=== PATIENT | male | born 1975 | race African-American/Black ===

== ENCOUNTER 2018-12-05 10:03 | Inpatient (IN) ==
--- NOTE | 2018-12-05 10:28 | PROVIDER DOCUMENTATION ---
HPI-General Adult - General Chief Complaint: Abdominal Pain Stated Complaint: ABD PAIN Time Seen by Provider: 12/05/18 10:24 Source: patient Allergies/Adverse Reactions: Patient Allergies Allergy/AdvReac Type Severity Reaction Status Date / Time No Known Allergies Allergy Verified 12/05/18 10:16 Home Medications: Home Medication List Medication Instructions Recorded Confirmed Last Taken Type NK [No Home Medications] 12/05/18 12/05/18 Unknown History - History of Present Illness -Gen Adult Nature of Presenting Problems: Pt. is 43 yom that presents with c/o LLQ abd pain that began three days ago. He reports his last normal BM was Thursday and he has been trying laxatives but nothing helps. He denies any Hx of diverticulitis and reports no N/V/D. He has no other complaints. Location of Pain/Injury: reports: abdomen. denies: none, head, face, mouth, neck, chest, upper extremity, hand(s), back, pelvis, genitalia, lower extremity, feet, upper body, lower body, generalized, other Pain Radiation: reports: LLQ. denies: no radiation, arm(s), back, buttocks, chest, epigastric, feet, groin, jaw, flank (L), legs (lower), LUQ, neck, periumbilical, flank (R), RLQ, RUQ, shoulder(s), scapula, scrotal, sternal notch, suprapubic, legs (upper), urethral, vaginal, other Quality of Pain: reports: aching. denies: burning, pressure, tightness Severity: reports: moderate. denies: mild, severe Onset/Duration: reports: gradual, 3 days ago Timing: reports: still present. denies: improving, intermittent, getting worse Context/Activities at Onset: reports: none. denies: light activity, moderate activity, vigorous activity, recent emotional stress, recent physical stress, recent trauma history, possible bad food, cold exposure, eating, out of country travel, rest, sleep, sexual activity, other Modifying Factors: improves with: nothing Associated Symptoms: reports: other (LLQ abd pain). denies: denies symptoms, anxiety, arm pain, back/neck pain, chest pain, constipation, cough, diaphoresis, diarrhea, dizziness, EENT symptoms, fatigue, fever/chills, genitourinary problems, headaches, heartburn, joint pain, loss of appetite, malaise, muscle aches, sinus congestion/drainage, nausea, rash, seizure, shortness of breath, sensory/motor loss, pain with inspiration, swelling/mass in abdomen, syncope, v omiting, weakness, trouble walking Similar Symptoms Previously?: Yes Recently seen or treated by another doctor?: No Review of Systems - Adult - REVIEW OF SYSTEMS - ADULT Constitutional: reports: no symptoms reported Eyes: reports: no symptoms reported Ears, Nose, Mouth & Throat: reports: no symptoms reported Cardiovascular: reports: no symptoms reported Respiratory: reports: no symptoms reported Gastrointestinal: reports: see HPI, abdominal pain. denies: diarrhea, nausea, vomiting Genitourinary: reports: no symptoms reported Musculoskeletal: reports: no symptoms reported Integumentary: reports: no symptoms reported Neurological: reports: no symptoms reported Psychiatric: reports: no symptoms reported Past History - Adult - PAST MEDICAL HISTORY-ADULT Review of Records: reports: Old Records Reviewed, Nursing Assessment Review, Medications Reviewed, Social history reviewed & non-contributory. - IMMUNIZATION STATUS Childhood Immunizations: See Nurse Assessment Flu Vaccine: See Nurse Assessment - FAMILY HISTORY Family History: reviewed, not pertinent - SOCIAL HISTORY Smoking: denies Physical Exam-General - PHYSICAL EXAM-ADULT Initial Vital Signs Reviewed: Yes - CONSTITUTIONAL General Appearance: alert, no apparent distress. negative: anxious, obtunded, combative - EYES Eyes: PERRL/EOMI, pink conjunctivae - HEAD, EARS, NOSE, MOUTH & THROAT HENMT: normocephalic/atraumatic, moist mucous membranes - NECK Neck: non-tender, full range of motion, supple, normal inspection - RESPIRATORY Respiratory: lungs clear, normal breath sounds - CARDIOVASCULAR Cardiovascular: normal peripheral pulses, regular rate, rhythm, no edema - GASTROINTESTINAL (ABDOMEN) Abdominal Exam: normal bowel sounds, soft, tenderness (LLQ). negative: distended, guarding, rigid, rebound, hernia, mass - LYMPHATIC Lymphatic: no adenopathy - MUSCULOSKELETAL Back Exam: normal inspection, no CVA tenderness, no vertebral tenderness Extremity: normal range of motion, non-tender, normal gait, normal inspection Peripheral Pulses: radial (R): 2+, radial (L): 2+ - SKIN Integumentary: normal color, normal turgor, warm/dry - NEUROLOGIC Neurologic: grossly normal, no motor/sensory deficits - PSYCHIATRIC Psych/Mental Status: normal mood/affect, normal thought content, normal thought process, oriented x 3. negative: anxious, paranoid, tearful Progress - PLAN OF CARE/RESULTS Progress/Plan/Lab Results: Vital Signs - 8 hr 12/05/18 10:14 Temperature 99.6 F Pulse Rate 94 H Respiratory Rate 18 Blood Pressure 123/81 O2 Sat by Pulse Oximetry 96 Orders Category Date Time Status FLAT/UPRIGHT ABD/1 VIEW CHEST [RAD] Stat Exams 12/05/18 10:17 Ordered AMYLASE [CHEM] Stat Lab 12/05/18 10:17 Ordered CBC WITH DIFF [HEME] Stat Lab 12/05/18 10:17 Ordered COMPREHENSIVE METABOLIC PANEL [CHEM] Stat Lab 12/05/18 10:26 Ordered LIPASE [CHEM] Stat Lab 12/05/18 10:[address] W/POSS RFLX CULT [URINALYSIS] Stat Lab 12/05/18 10:26 Ordered Result Diagrams: 12/05/18 10:28 12/05/18 10:28 - CT/MRI 1 CT Study: Abdomen, Pelvis ([facility] - [address] [place] [address] [place] [address] [place] [address] - [address] [place] [address] Department of Imaging Patient: LUCERO LEWIS Date: 12/05/18#: [id number] : 1975ADM Status: REG [facility]#: [id number] Age/Sex: 43/MRoom/Bed: Loc: P.ED Ordering Physician: Sandra Sarmiento Family Physician: None,PCP Reason for Procedure: abd pain Signed CT ABD/PELVIS W/IV CONT ONLY - 12/05/2018 INDICATION: abd pain COMPARISON: None FINDINGS: The lung bases are clear and the heart size is normal. There is a nodule in the left adrenal gland that measures 2.3 cm. The density measurement in size 35 which is indeterminate. There are a couple of tiny left renal cysts. Otherwise abdominal organs are all normal. There are appendectomy changes. There is intense inflammation around a diverticulum of the sigmoid colon. No free air or drainable fluid collection. Urinary bladder, prostate, and rectum are normal. Bones are intact. IMPRESSION: 1. Acute diverticulitis of the sigmoid colon. No complication. 2. Small left adrenal gland nodule of doubtful significance. This exam was performed using automated exposure control, adjustment of mA or kV according to patient size, and/or use of iterative reconstruction technique Electronically signed by Domo Lewis 12/05/2018 1:16 PM 12/05/18 1316 Interpreting Physician: Domo Lewis MD Dictated Date/Time: 12/05/18 1314 cc: Sandra Sarmiento; None,PCP) CT Results: See note - CONSULTS/PCP/HOSPITALIST Notification #1 *Consult/PCP/Hospitalist*: Dr. Garcia Time Discussed: 13:26 Reason/Comments: Admission Consult Disposition: Will see in ED, Admit Departure - Departure Date of Disposition Decision: 12/05/18 Time of Disposition Decision: 13:22 DIAGNOSIS: Diverticulitis Disposition: ADMITTED INPATIENT 09 Certified Medical Emergency: Emergent Condition: Stable Additional Freetext Instructions: ED Follow Up Instructions: You have been treated by a care provider in the Emergency Department. These instructions are being provided to you so you can have an understanding of how to care for yourself upon discharge. Upon discharge from the Emergency Department, you are responsible for making arrangements for follow-up care by a physician of your choice. Take all prescribed medications as directed. Return to the Emergency Department immediately for any new or worsening symptoms. You may call the Physician Referral phone number at [phone] to obtain a list of Physicians who are taking new patients. Referrals and Follow-Ups: None,PCP [Primary Care Provider] - - Critical Care Note This patient required my direct & personal management of CC.: No Attestation - Physician/ ELLE Attestation Patient care was provided by Advanced Practice Provider:: Yes Advanced Practice Provider:: Sandra Sarmiento Advanced Practice Provider documentation review:: The Mid-level provider documentation, treatment plan and medical decision making was reviewed by the physician who agrees with all treatment and medical decision making by the MLP. The physician spent face to face time with patient:: No Advanced Practice Provider documentation review:: Supervising physician onsite and consulted in the evaluation and care of this patient. The physician did not have a face to face encounter with the patient.
[2018-12-05 10:39] LABS: BILIRUBIN URINE NEGATIVE (NEGATIVE); BLOOD URINE 2+ (NEGATIVE); CLARITY SL. CLOUDY (CLEAR); COLOR YELLOW; GLUCOSE URINE NEGATIVE (NEGATIVE); KETONE URINE NEGATIVE (NEGATIVE); LEUKOCYTES URINE NEGATIVE (NEGATIVE); NITRITE URINE NEGATIVE (NEGATIVE); PROTEIN URINE TRACE mg/dL (NEGATIVE); SP GRAVITY URINE 1.025; UROBILINOGEN URINE NORMAL
[2018-12-05 10:39] LABS: BASO# 0.01 X1000 (0.0-0.2); BASO% 0.1 % (0.0-0.8); EOS# 0.18 X1000 (0.0-0.7); EOS% 1.1 % (0.0-10.0); HEMATOCRIT 41.5 % (42.0-52.0); HEMOGLOBIN 13.3 g/dL (14.0-18.0); IMM GRAN# 0.04 X1000 (0.0-0.04); IMM GRAN% 0.3 % (0.0-0.5); LYMPH% 8.8 % (20.5-51.1); MCH 24.1 PG (27-31); MCV 75.3 FL (81-99); MONO# 1.59 X1000 (0.11-0.59); MONO% 10.1 % (1.7-9.3); MPV 11.8 FL (7.4-10.4); NEUT% 79.6 % (42.2-75.2); PLT 194 X1000 (130-400); RBC 5.51 XMIL (4.7-6.1); RDW 14.8 % (11.5-14.5); WBC 15.82 X1000 (4.8-10.8)
[2018-12-05 10:41] LABS: URINE BACTERIA 1+ /HFP; URINE CAST NONE SEEN /LPF; URINE CRYSTAL NONE SEEN /HPF; URINE EPITHELIAL CELLS <10 /HPF (<10); URINE RBC 20-40 /HPF (<10); URINE SOURCE CLEAN CATCH; URINE WBC <10 /HPF (<10); URINE YEAST NONE SEEN /HPF
[2018-12-05 11:09] LABS: AGAP 14; ALBUMIN 4.3 g/dL (3.5-5.0); ALKALINE PHOSPHATASE 98 U/L (32-122); BUN 11 mg/dL (8-22); CALCIUM 9.1 mg/dL (8.8-10.2); CHLORIDE 101 mmol/L (98-107); COSMO 283; ESTIMATED GFR > 60; GLUCOSE 106 mg/dL (70-104); GOT 11 U/L (10-34); GPT 15 U/L (10-44); LIPASE 21 U/L (13-60); POTASSIUM 3.8 mmol/L (3.5-5.1); SODIUM 142 mmol/L (136-145); TCO2 27 mmol/L (25-35); TOTAL PROTEIN 7.5 g/dL (6.3-8.3)
--- NOTE | 2018-12-05 13:19 | Diag Imaging Result Doc PS360 ---
CT ABD/PELVIS W/IV CONT ONLY - 12/05/2018 INDICATION: abd pain COMPARISON: None FINDINGS: The lung bases are clear and the heart size is normal. There is a nodule in the left adrenal gland that measures 2.3 cm. The density measurement in size 35 which is indeterminate. There are a couple of tiny left renal cysts. Otherwise abdominal organs are all normal. There are appendectomy changes. There is intense inflammation around a diverticulum of the sigmoid colon. No free air or drainable fluid collection. Urinary bladder, prostate, and rectum are normal. Bones are intact. IMPRESSION: 1. Acute diverticulitis of the sigmoid colon. No complication. 2. Small left adrenal gland nodule of doubtful significance. This exam was performed using automated exposure control, adjustment of mA or kV according to patient size, and/or use of iterative reconstruction technique Electronically signed by Domo Lewis 12/05/2018 1:16 PM
[2018-12-05] MEDS ORDERED: FLAGYL 500 MG/NS 500 MG/100 ML IVPB IV ONE (13:23)
[2018-12-05] MEDS ORDERED: MORPHINE IV PRN (14:53)
[2018-12-05] MEDS: NS 1,000 ML IV SCH (15:18)
[2018-12-05] MEDS: ZOFRAN IV PRN (15:19)
[2018-12-05] MEDS: ROCEPHIN 1 GM in NS 50 ML IV SCH (15:23)
[2018-12-05 17:01] LABS: INR 0.93; PROTIME 12.9 Seconds (11.0-16.0)
[2018-12-05] MEDS: MORPHINE IV PRN (18:17)
--- NOTE | 2018-12-05 18:20 | HISTORY AND PHYSICAL ---
CHIEF COMPLAINT: Abdominal pain of 2 days duration. HISTORY OF PRESENT ILLNESS: Mr. Tom Wallis is a 43-year-old gentleman who came into the emergency room with 2-day history of worsening lower abdominal pain for past 2 days. He denies having any vomiting but does have some nausea. He denies having any other complaints except for having low-grade fever. PAST MEDICAL HISTORY: Eczema. SOCIAL HISTORY: The patient does not smoke any tobacco products nor does he drink any alcohol. FAMILY HISTORY: Noncontributory. ALLERGIES: No known drug allergies. 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 REVIEW OF SYSTEMS: A full 14-point review of systems was obtained that was pretty much the same as already has been explained in the HPI. PHYSICAL EXAMINATION: VITAL SIGNS: Temperature 99.2 degrees, pulse 91 per minute, respiratory rate 18 per minute, blood pressure 138/79, pulse oximetry 96% on room air. GENERAL: Patient is alert and oriented x3. He does not appear to be in any acute distress. HEENT: Within normal limits. NECK: Supple without any thyromegaly. LYMPHATICS: No lymphadenopathy noted in the neck region. CHEST: Chest wall is nontender. CARDIOVASCULAR: First and second heart sounds are audible without any murmurs or gallops. RESPIRATORY: No respiratory distress noted. Bilateral lung air entry is good without any rales or rhonchi. GASTROINTESTINAL: Abdomen is soft and nondistended. It is significantly tender in the left lower quadrant and suprapubic area. There is some guarding but no rigidity. There is also no rebound tenderness. Normal bowel sounds are present. NEUROLOGIC: No focal deficits are present. GENITOURINARY: Deferred. INTEGUMENTARY: Skin is warm, dry, and without any rash. MUSCULOSKELETAL: No deformities are present. DIAGNOSTIC DATA: CBC shows WBC count of 15.82 with 79.6% neutrophils. Rest of the CBC is nondiagnostic. PT and PTT are within normal limits and comprehensive metabolic panel was also nondiagnostic. Cardiac enzymes were found to be negative and amylase and lipase along with plasma lactate levels were also found to be negative. Urinalysis showed 20 to 40 RBCs per high-power field but no WBCs. CT scan of the abdomen and pelvis was obtained that was positive for acute diverticulitis of the sigmoid colon without any perforation or any other complications. Small left adrenal gland nodule of doubtful significance was also noted. IMPRESSION: Abdominal pain with leukocytosis secondary to acute diverticulitis. PLAN: The patient will be admitted to the medical-surgical floor and will be initiated on IV ceftriaxone along with IV metronidazole. He will also get IV fluids and get pain relief with morphine sulfate on as-needed basis along with getting Zofran as needed IV for nausea and vomiting relief. We will provide him supportive care and would probably be able to discharge home within the next 2 to 3 days. cc: Alen Garcia MD
--- NOTE | 2018-12-05 19:27 | Diag Imaging Result Doc PS360 ---
CHEST-1 VIEW - 12/05/2018 INDICATION: sepsis COMPARISON: None FINDINGS: The lungs are normally expanded and clear. Heart size and mediastinal contours are normal. No pneumothorax or pleural effusion. IMPRESSION: Negative exam. Electronically signed by Domo Lewis 12/05/2018 7:25 PM
[2018-12-05] MEDS: FLAGYL 500 MG/NS 500 MG/100 ML IVPB IV SCH (20:08)
[2018-12-06] MEDS: FLAGYL 500 MG/NS 500 MG/100 ML IVPB IV SCH ×4 (01:16→19:54)
[2018-12-06] MEDS: MORPHINE IV PRN ×5 (02:36→19:54)
[2018-12-06] MEDS: NS 1,000 ML IV SCH ×3 (02:36→18:18)
[2018-12-06 06:28] LABS: BASO# 0.01 X1000 (0.0-0.2); BASO% 0.1 % (0.0-0.8); EOS# 0.16 X1000 (0.0-0.7); HEMATOCRIT 38.7 % (42.0-52.0); HEMOGLOBIN 12.3 g/dL (14.0-18.0); IMM GRAN# 0.05 X1000 (0.0-0.04); IMM GRAN% 0.3 % (0.0-0.5); LYMPH# 1.51 X1000 (1.2-3.4); LYMPH% 9.4 % (20.5-51.1); MCHC 31.8 g/dL (33-37); MCV 75.6 FL (81-99); MONO# 1.49 X1000 (0.11-0.59); MONO% 9.3 % (1.7-9.3); MPV 11.2 FL (7.4-10.4); NEUT# 12.84 X1000 (1.4-6.5); NEUT% 79.9 % (42.2-75.2); PLT 183 X1000 (130-400); RBC 5.12 XMIL (4.7-6.1); RDW 14.8 % (11.5-14.5); WBC 16.06 X1000 (4.8-10.8)
[2018-12-06 07:08] LABS: AGAP 11; ALBUMIN 3.9 g/dL (3.5-5.0); ALKALINE PHOSPHATASE 93 U/L (32-122); BUN 6 mg/dL (8-22); CALCIUM 9.1 mg/dL (8.8-10.2); CHLORIDE 102 mmol/L (98-107); COSMO 279; CREATININE 0.9 mg/dL (0.7-1.2); ESTIMATED GFR > 60; GLUCOSE 134 mg/dL (70-104); GOT 9 U/L (10-34); GPT 12 U/L (10-44); POTASSIUM 3.6 mmol/L (3.5-5.1); SODIUM 140 mmol/L (136-145); TCO2 28 mmol/L (25-35); TOTAL PROTEIN 7.4 g/dL (6.3-8.3)
[2018-12-06] MEDS: TYLENOL PO PRN ×2 (09:41→15:49)
[2018-12-06] MEDS: ZOFRAN IV PRN (12:37)
[2018-12-06] MEDS: ROCEPHIN 1 GM in NS 50 ML IV SCH (15:49)
--- NOTE | 2018-12-06 21:49 | PROGRESS NOTE ---
DATE: 12/06/2018 SUBJECTIVE: The patient notes that he still has significant abdominal pain. Notes that he has only drank a few sips here and there, and his abdominal pain continues to be problematic. PHYSICAL EXAMINATION: Vital Signs: Temperature 98.7, pulse 87, respiratory rate 18, BP 123/81. General: Patient is awake, currently in no respiratory distress. He is obviously ill appearing with any movement. He grimaces with pain. HEENT: Normocephalic. Neck: Supple. Cardiovascular: Regular rate. No murmurs. Chest: Clear and nonlabored. Abdomen: Soft. Positive bowel sounds, diffusely tender. Extremities: Moves all extremities. ASSESSMENT: 1. Leukocytosis. 2. Diverticulitis. PLAN: We will continue patient in the hospital with intravenous fluids. Continue Flagyl and Rocephin and will follow. Expect to be in the hospital for a few days. cc: Arpit Rodriguez MD
[2018-12-07] MEDS: ZOFRAN IV PRN ×3 (00:13→21:50)
[2018-12-07] MEDS: MORPHINE IV PRN ×4 (00:13→21:45)
[2018-12-07] MEDS: NS 1,000 ML IV SCH ×3 (01:09→21:45)
[2018-12-07] MEDS: FLAGYL 500 MG/NS 500 MG/100 ML IVPB IV SCH ×2 (01:09→08:40)
[2018-12-07] MEDS: ZOSYN 3.375 GM in NS 50 ML IV SCH ×3 (12:53→23:09)
[2018-12-07] MEDS: TYLENOL PO PRN (12:53)
[2018-12-07] MEDS ORDERED: MILK OF MAGNESIA PO PRN (17:47)
[2018-12-07] MEDS: MIRALAX PO SCH (18:58)
--- NOTE | 2018-12-07 19:34 | PROGRESS NOTE ---
DATE: 12/07/2018 SUBJECTIVE: The patient is still complaining of pain. He is not much better. He is a bit upset about that. He has not been communicated with per his discussion. He is upset and I think his significant other is also upset. OBJECTIVE: Blood pressure is 143/92, heart rate 86, respiratory rate 16, temperature 98.1 degrees, 98% on room air.Cardiovascular: Regular rate and rhythm. Pulmonary: Bilateral breath sounds. Clear to auscultation. Gastrointestinal: Soft, nontender, nondistended. Bowel sounds are positive. LABORATORY DATA: We did not get any new data today. IMPRESSION: Diverticulitis. White count was still high. I switched him to Zosyn today. I think if he is not much better in the next 24 hours, we will have to do reimaging, make sure there is no abscess or perforation. He is passing flatus, but he still has not had a bowel movement. According to his , he has not had a bowel movement in seven days. He is tolerating clears. He has pain after urination, but I am not entirely sure that may not be related to his primary issue. His UA did show just some mild hematuria, nothing major. PROBLEM LIST: Diverticulitis, acute sigmoid. We will continue treatment which includes IV antibiotics. Initiate bowel regimen. If he is not much better in the next tomorrow, I am going to re-image with CT. We had discussed at length that I did not want to collier into that due to radiation concern in a 43-year-old, but they seem to understand the risk there, but we may have to do it if he is not improved and get a surgical consult. I think they understood what was going on. We explained the pathology of diverticulitis, diverticulosis, and diverticular bleed, and that he would need to be on chronic bowel treatments long-term. cc: Robi Christine MD
[2018-12-07] MEDS: DULCOLAX PR SCH (21:05)
[2018-12-08] MEDS: MORPHINE IV PRN ×4 (01:19→20:56)
[2018-12-08] MEDS: ZOFRAN IV PRN ×4 (01:24→21:06)
[2018-12-08] MEDS: ZOSYN 3.375 GM in NS 50 ML IV SCH ×4 (05:06→23:26)
[2018-12-08 07:20] LABS: BASO# 0.03 X1000 (0.0-0.2); BASO% 0.2 % (0.0-0.8); EOS# 0.14 X1000 (0.0-0.7); HEMATOCRIT 39.4 % (42.0-52.0); HEMOGLOBIN 12.5 g/dL (14.0-18.0); IMM GRAN# 0.04 X1000 (0.0-0.04); IMM GRAN% 0.3 % (0.0-0.5); LYMPH# 1.17 X1000 (1.2-3.4); LYMPH% 8.5 % (20.5-51.1); MCH 23.7 PG (27-31); MCHC 31.7 g/dL (33-37); MCV 74.8 FL (81-99); MONO# 1.75 X1000 (0.11-0.59); MONO% 12.6 % (1.7-9.3); MPV 11.4 FL (7.4-10.4); NEUT# 10.71 X1000 (1.4-6.5); NEUT% 77.4 % (42.2-75.2); PLT 244 X1000 (130-400); RBC 5.27 XMIL (4.7-6.1); RDW 14.5 % (11.5-14.5); WBC 13.84 X1000 (4.8-10.8)
[2018-12-08 07:54] LABS: AGAP 11; BUN 6 mg/dL (8-22); CALCIUM 9.1 mg/dL (8.8-10.2); CHLORIDE 102 mmol/L (98-107); COSMO 274; CREATININE 0.9 mg/dL (0.7-1.2); ESTIMATED GFR > 60; GLUCOSE 103 mg/dL (70-104); POTASSIUM 3.7 mmol/L (3.5-5.1); SODIUM 138 mmol/L (136-145); TCO2 25 mmol/L (25-35)
[2018-12-08] MEDS: MIRALAX PO SCH ×2 (09:04→20:51)
[2018-12-08] MEDS: DULCOLAX PR SCH ×2 (09:04→20:50)
[2018-12-08] MEDS: NS 1,000 ML IV SCH ×2 (09:05→21:06)
[2018-12-08] MEDS ORDERED: FLEET ENEMA PR PRN (11:38)
[2018-12-08 22:56] LABS: BILIRUBIN URINE NEGATIVE (NEGATIVE); BLOOD URINE 3+ (NEGATIVE); CLARITY CLEAR (CLEAR); COLOR YELLOW; GLUCOSE URINE NEGATIVE (NEGATIVE); KETONE URINE NEGATIVE (NEGATIVE); LEUKOCYTES URINE TRACE (NEGATIVE); NITRITE URINE NEGATIVE (NEGATIVE); PROTEIN URINE NEGATIVE (NEGATIVE); SP GRAVITY URINE 1.005; UROBILINOGEN URINE NORMAL
[2018-12-08 22:57] LABS: URINE SOURCE CLEAN CATCH
[2018-12-08 22:58] LABS: URINE BACTERIA NEGATIVE /HFP; URINE EPITHELIAL CELLS <10 /HPF (<10); URINE WBC <10 /HPF (<10)
[2018-12-09] MEDS: ZOSYN 3.375 GM in NS 50 ML IV SCH ×2 (05:58→12:24)
[2018-12-09] MEDS: NS 1,000 ML IV SCH ×2 (05:59→19:19)
[2018-12-09 07:06] LABS: BASO# 0.06 X1000 (0.0-0.2); BASO% 0.4 % (0.0-0.8); EOS# 0.15 X1000 (0.0-0.7); EOS% 1.1 % (0.0-10.0); HEMATOCRIT 39.9 % (42.0-52.0); HEMOGLOBIN 12.4 g/dL (14.0-18.0); IMM GRAN# 0.08 X1000 (0.0-0.04); IMM GRAN% 0.6 % (0.0-0.5); LYMPH# 1.31 X1000 (1.2-3.4); LYMPH% 9.3 % (20.5-51.1); MCH 23.1 PG (27-31); MCHC 31.1 g/dL (33-37); MCV 74.4 FL (81-99); MONO# 1.72 X1000 (0.11-0.59); MONO% 12.2 % (1.7-9.3); MPV 10.8 FL (7.4-10.4); NEUT# 10.77 X1000 (1.4-6.5); NEUT% 76.4 % (42.2-75.2); PLT 269 X1000 (130-400); RBC 5.36 XMIL (4.7-6.1); RDW 14.4 % (11.5-14.5); WBC 14.09 X1000 (4.8-10.8)
[2018-12-09 07:17] LABS: AGAP 10; BUN 5 mg/dL (8-22); CALCIUM 9.1 mg/dL (8.8-10.2); CHLORIDE 102 mmol/L (98-107); COSMO 275; CREATININE 0.9 mg/dL (0.7-1.2); ESTIMATED GFR > 60; GLUCOSE 105 mg/dL (70-104); POTASSIUM 3.7 mmol/L (3.5-5.1); SODIUM 139 mmol/L (136-145); TCO2 28 mmol/L (25-35)
[2018-12-09 07:57] LABS: ANISOCYTOSIS 1+; LYMPHS 9 % (21-51); MICROCYTOSIS 1+; MONO 12 % (1-9); SEGS 77 % (42-75)
[2018-12-09] MEDS: MIRALAX PO SCH (08:54)
[2018-12-09] MEDS: DULCOLAX PR SCH (08:56)
[2018-12-09] MEDS ORDERED: LACTULOSE PO SCH (10:45)
[2018-12-09] MEDS: MORPHINE IV PRN (10:49)
[2018-12-09] MEDS: ZOFRAN IV PRN ×2 (10:50→15:18)
--- NOTE | 2018-12-09 14:11 | Diag Imaging Result Doc PS360 ---
EXAM: CT ABDOMEN/PELVIS W/WO CONTRAS HISTORY: diverticulitis TECHNIQUE: CT abdomen and pelvis with and without intravenous contrast COMPARISON: 12/05/2018 FINDINGS: Noncontrasted images: There are several tiny left renal stones. No hydronephrosis. Normal aorta. No bowel obstruction. Post contrasted images: There is mild fatty infiltration of the liver. No calcified gallstones or adjacent patient. Normal spleen, pancreas, and right adrenal gland. Stable left adrenal nodule. Small renal cysts. The appendix has been removed. Mildly prominent para-aortic pericaval nodes. There is thickening to the wall of the sigmoid colon. There is adjacent inflammation and several extraluminal air bubbles. No well-defined fluid collection. The urinary bladder is moderately distended and normal. Normal prostate. IMPRESSION: Worsening sigmoid diverticulitis. This exam was performed using automated exposure control, adjustment of mA or kV according to patient size, and/or use of iterative reconstruction technique. Electronically signed by Andre Ramírez 12/09/2018 2:09 PM
[2018-12-09] MEDS: MERREM 1 GM in NS 50 ML IV SCH ×2 (15:14→22:50)
--- NOTE | 2018-12-09 20:10 | GENERAL SURGERY CONSULTATION ---
DATE: 12/09/2018 REASON FOR CONSULTATION: Diverticulitis. HISTORY OF PRESENT ILLNESS: A 43-year-old male who presented to the emergency room on 12/05/2018 with a 2-day history of left lower abdominal pain which was worsened with movement or direct pressure, and he had not had a bowel movement in several days. He was found to have diverticulitis on CT scan. He was admitted, made NPO, and placed on Rocephin and Flagyl. Through the week he reports to me that his pain is present, but not as bad as on admission. He says it mainly hurts when he gets from a lying to sitting position or when he is sitting down to use the bathroom or someone is pressing on it. He is able to walk without pain. He denies nausea, vomiting, fever, chills or other systemic complaints. PAST MEDICAL HISTORY: None. PAST SURGICAL HISTORY: Appendectomy. HOME MEDICATIONS: None. ALLERGIES: No known drug allergies. SOCIAL HISTORY: He drinks alcohol occasionally. No tobacco or illicit drug use. 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 FAMILY HISTORY: reviewed and non-contributory REVIEW OF SYSTEMS: Ten systems reviewed and negative except as noted above. PHYSICAL EXAMINATION: Temperature 98.6 degrees, pulse 77, respirations 18, blood pressure 136/86, O2 saturation 98%.General: Well-developed, well-nourished male in no distress who looks his stated age. HEENT: Normocephalic, atraumatic. Extraocular muscles intact. Pupils equal, round, reactive to light. Sclerae anicteric. Moist mucous membranes. Hearing grossly normal. No oral lesions. Neck supple. No thyromegaly. CV: Regular rate and rhythm. Respiratory: Clear bilateral breath sounds. No increased work of breathing. Gastrointestinal: Soft, nondistended. No organomegaly or mass. He is focally tender in the left lower quadrant. No guarding. He does have some mild rebound. Extremities: No clubbing, cyanosis or edema. Skin warm and dry. No rash. Musculoskeletal: Moves all extremities equally and well. LABORATORY DATA: White blood cell count 14, hemoglobin 12, hematocrit 39.9, platelet count 269,000. Electrolytes reviewed and unremarkable. DIAGNOSTIC DATA: His admission and followup abdominal and pelvis CT scans were reviewed by me. He does have a thickened inflamed sigmoid colon with a few extraluminal air droplets and stranding of the mesenteric fat around it. There is oral contrast passing through the sigmoid colon into the rectum, but without any leakage into the extraluminal tissues. There is no free intra- abdominal air or pelvic free fluid. These changes appear relatively unchanged in my opinion. ASSESSMENT AND PLAN: A 43-year-old male with contained perforation of the sigmoid colon, likely due to diverticulitis. Given his somewhat improved symptoms, stable vital signs, nontoxic appearance, etc., I favor a few more days of conservative management. He has recently been switched to Merrem, which is a good choice. We will monitor him through the next few days. If he shows improvement with lessened pain and tenderness, resolution of his leukocytosis, etc., then I would favor discharge early next week on oral antibiotics and followup in my office. If he fails to improve or worsens, then he will of course need resection plus or minus a colostomy. I think we will probably be able to prep him and avoid a colostomy. Thank you for the consultation. cc: Juno Bazan MD [facility]
[2018-12-10] MEDS: TYLENOL PO PRN ×2 (04:00→17:08)
[2018-12-10] MEDS: NS 1,000 ML IV SCH (06:14)
[2018-12-10] MEDS: MERREM 1 GM in NS 50 ML IV SCH ×3 (06:14→23:59)
[2018-12-10] MEDS: ZOFRAN IV PRN (06:18)
[2018-12-10 06:42] LABS: BASO# 0.09 X1000 (0.0-0.2); BASO% 0.8 % (0.0-0.8); EOS# 0.14 X1000 (0.0-0.7); EOS% 1.2 % (0.0-10.0); HEMATOCRIT 37.5 % (42.0-52.0); IMM GRAN# 0.11 X1000 (0.0-0.04); IMM GRAN% 0.9 % (0.0-0.5); LYMPH# 1.33 X1000 (1.2-3.4); LYMPH% 11.4 % (20.5-51.1); MCH 23.8 PG (27-31); MCV 74.3 FL (81-99); MONO% 13.7 % (1.7-9.3); MPV 10.9 FL (7.4-10.4); NEUT# 8.39 X1000 (1.4-6.5); PLT 274 X1000 (130-400); RBC 5.05 XMIL (4.7-6.1); RDW 14.3 % (11.5-14.5); WBC 11.66 X1000 (4.8-10.8)
[2018-12-10 06:45] LABS: CHLORIDE 102 mmol/L (98-107); POTASSIUM 3.5 mmol/L (3.5-5.1); SODIUM 140 mmol/L (136-145)
[2018-12-10 06:46] LABS: AGAP 11; BUN 4 mg/dL (8-22); CALCIUM 8.9 mg/dL (8.8-10.2); COSMO 277; CREATININE 0.9 mg/dL (0.7-1.2); ESTIMATED GFR > 60; GLUCOSE 108 mg/dL (70-104); TCO2 27 mmol/L (25-35)
[2018-12-10 08:26] LABS: LYMPHS 12 % (21-51); MONO 9 % (1-9); SEGS 79 % (42-75)
[2018-12-10] MEDS ORDERED: TUCKS PADS TOP PRN (12:02)
[2018-12-10] MEDS ORDERED: PRILOSEC PO ONE ×2 (14:22→19:45)
[2018-12-11 06:35] LABS: AGAP 11; BASO# 0.02 X1000 (0.0-0.2); BASO% 0.2 % (0.0-0.8); BUN 5 mg/dL (8-22); CHLORIDE 99 mmol/L (98-107); COSMO 271; CREATININE 0.9 mg/dL (0.7-1.2); EOS# 0.12 X1000 (0.0-0.7); EOS% 1.3 % (0.0-10.0); ESTIMATED GFR > 60; GLUCOSE 172 mg/dL (70-104); HEMATOCRIT 38.7 % (42.0-52.0); HEMOGLOBIN 12.1 g/dL (14.0-18.0); IMM GRAN# 0.13 X1000 (0.0-0.04); IMM GRAN% 1.4 % (0.0-0.5); LYMPH# 0.85 X1000 (1.2-3.4); LYMPH% 9.4 % (20.5-51.1); MCH 23.2 PG (27-31); MCHC 31.3 g/dL (33-37); MCV 74.3 FL (81-99); MONO# 1.29 X1000 (0.11-0.59); MONO% 14.2 % (1.7-9.3); MPV 10.6 FL (7.4-10.4); NEUT# 6.68 X1000 (1.4-6.5); NEUT% 73.5 % (42.2-75.2); PLT 294 X1000 (130-400); POTASSIUM 3.2 mmol/L (3.5-5.1); RBC 5.21 XMIL (4.7-6.1); RDW 14.3 % (11.5-14.5); SODIUM 135 mmol/L (136-145); TCO2 26 mmol/L (25-35); WBC 9.09 X1000 (4.8-10.8)
[2018-12-11] MEDS: PRILOSEC PO SCH (06:39)
[2018-12-11] MEDS: TYLENOL PO PRN (06:39)
[2018-12-11] MEDS: MERREM 1 GM in NS 50 ML IV SCH ×3 (06:40→22:59)
[2018-12-11 07:17] LABS: BASO 1 % (0-1); LYMPHS 12 % (21-51); MONO 11 % (1-9); SEGS 76 % (42-75)
[2018-12-11 07:18] LABS: MICROCYTOSIS 2+
[2018-12-11] MEDS ORDERED: KLOR-CON PO ONE (09:10)
--- NOTE | 2018-12-11 10:02 | PROGRESS NOTE ---
DATE: 12/11/2018 SUBJECTIVE: The patient feels better this morning and denies having any acute complaints. OBJECTIVE: Vital Signs: Temperature 98.4 degrees, pulse 71 per minute, respiratory rate 14 per minute, blood pressure 124/88, pulse oximetry 98% on room air. General: Patient is alert and oriented x3. He does not appear to be in any acute distress. Cardiovascular System: First and second heart sounds are audible without any murmurs or gallops. Respiratory System: Bilateral lung air entry is good without any rales or rhonchi. Gastrointestinal system: Abdomen is soft and slightly tender on deep palpation in left lower quadrant. No rebound tenderness or guarding are present. Normal bowel sounds are present. LABORATORY DATA: CBC shows WBC count of 9.09, hemoglobin 12.1, hematocrit 38.7, and platelet count 294,000. In comparison, his WBC count was 11.66 yesterday. Basic metabolic panel showed potassium level of 3.2. Glucose levels were found to be 172. Rest of the BMP is nondiagnostic. IMPRESSION: Sigmoid diverticulitis. PLAN: The patient has been switched to meropenem which we will continue. He already had a surgical evaluation done and they have recommended to continue medical care at this time without any surgical intervention. He does appear to be getting better clinically and we will monitor that progress. cc: Alen Garcia MD
[2018-12-12 06:17] LABS: BASO# 0.03 X1000 (0.0-0.2); BASO% 0.3 % (0.0-0.8); EOS# 0.15 X1000 (0.0-0.7); EOS% 1.5 % (0.0-10.0); HEMATOCRIT 41.1 % (42.0-52.0); HEMOGLOBIN 12.9 g/dL (14.0-18.0); IMM GRAN# 0.16 X1000 (0.0-0.04); IMM GRAN% 1.6 % (0.0-0.5); LYMPH# 1.21 X1000 (1.2-3.4); LYMPH% 12.3 % (20.5-51.1); MCH 23.2 PG (27-31); MCHC 31.4 g/dL (33-37); MCV 73.9 FL (81-99); MONO# 1.53 X1000 (0.11-0.59); MONO% 15.6 % (1.7-9.3); MPV 10.5 FL (7.4-10.4); NEUT# 6.73 X1000 (1.4-6.5); NEUT% 68.7 % (42.2-75.2); PLT 332 X1000 (130-400); RBC 5.56 XMIL (4.7-6.1); RDW 14.5 % (11.5-14.5); WBC 9.81 X1000 (4.8-10.8)
[2018-12-12] MEDS: PRILOSEC PO SCH (06:30)
[2018-12-12] MEDS: MERREM 1 GM in NS 50 ML IV SCH ×3 (06:35→21:49)
[2018-12-12 06:40] LABS: AGAP 11; ALBUMIN 3.6 g/dL (3.5-5.0); ALKALINE PHOSPHATASE 77 U/L (32-122); BUN 6 mg/dL (8-22); CALCIUM 9.3 mg/dL (8.8-10.2); CHLORIDE 97 mmol/L (98-107); COSMO 271; CREATININE 0.9 mg/dL (0.7-1.2); EOS 1 % (1-10); ESTIMATED GFR > 60; GLUCOSE 96 mg/dL (70-104); GOT 15 U/L (10-34); GPT 16 U/L (10-44); LYMPHS 12 % (21-51); MONO 14 % (1-9); POTASSIUM 3.4 mmol/L (3.5-5.1); SEGS 72 % (42-75); SODIUM 137 mmol/L (136-145); TCO2 29 mmol/L (25-35); TOTAL PROTEIN 7.6 g/dL (6.3-8.3)
[2018-12-12 06:41] LABS: HYPOCHROM OCCASIONAL; LARGE PLATELETS OCCASIONAL; OVALOCYTES OCCASIONAL; POIKILOCYTOSIS OCCASIONAL
[2018-12-12] MEDS ORDERED: KLOR-CON PO ONE (07:36)
--- NOTE | 2018-12-12 14:04 | PROGRESS NOTE ---
DATE: 12/12/2018 SUBJECTIVE: Patient denies having any acute complaints this morning and feels better. OBJECTIVE: Vital Signs: Temperature 97.9 degrees, pulse 71 per minute, respiratory rate 18 per minute, blood pressure 135/89, pulse oximetry 100% on room air. General: Patient is alert and oriented x3. He does not appear to be in any acute distress. Cardiovascular System: First and second heart sounds are audible without murmurs or gallops. Respiratory System: Bilateral lung air entry is good without rales or rhonchi. Gastrointestinal System: Abdomen is soft and slightly tender on deep palpation in left lower quadrant. No guarding or rigidity are present. There is no rebound tenderness either. Normal bowel sounds are present. Musculoskeletal System: No deformities are present. Diagnostic Data: CBC shows WBC count of 9.81, hemoglobin 12.9, hematocrit 41.1, and platelet count of 332,000. Comprehensive metabolic panel showed potassium level of 3.4. Rest of the comprehensive metabolic panel is nondiagnostic. IMPRESSION: 1. Abdominal pain secondary to acute diverticulitis. 2. Hypokalemia. PLAN: We will continue with meropenem intravenously since he has responded well to that antibiotic. We are going to continue with IV fluids and advance the diet to a GI soft since he is getting better. I am going to give him potassium chloride 40 mEq a single dose for his hypokalemia. We will continue to provide him current care as his overall condition is getting better. cc: Alen Garcia MD
--- NOTE | 2018-12-12 19:29 | GENERAL SURGERY PROGRESS NOTE ---
DATE: 12/12/2018 SUBJECTIVE: The patient feels better today, describes less pain, no nausea or vomiting. He is passing gas and has had several stools. He is able to walk around and sit up now with less discomfort. OBJECTIVE: He is afebrile. Vital signs are stable.General: He is awake, alert, oriented x3. No acute distress. CV: Regular rate and rhythm. Respiratory: Bilateral breath sounds. No increased work of breathing. GI: Soft, nondistended. He is tender in the left lower quadrant but without rebound or guarding. LABORATORY: White blood cell count 11.6, hemoglobin 12, hematocrit 37. Electrolytes reviewed and unremarkable. ASSESSMENT/PLAN: 43-year-old male with contained perforated diverticulitis. He is clinically improving. We will continue conservative management for now with antibiotics. If he continues to improve through the weekend then I would anticipate discharge next week with oral antibiotics at home and follow up my office. If he worsens or fails to improve then we will proceed with exploratory laparotomy and resection. He understands and agrees with this plan. cc: Juno Bazan MD
[2018-12-13] MEDS: MERREM 1 GM in NS 50 ML IV SCH (06:18)
[2018-12-13] MEDS: PRILOSEC PO SCH (06:18)
[2018-12-13 06:32] LABS: AGAP 13; BUN 8 mg/dL (8-22); CALCIUM 9.3 mg/dL (8.8-10.2); CHLORIDE 99 mmol/L (98-107); COSMO 273; CREATININE 0.9 mg/dL (0.7-1.2); ESTIMATED GFR > 60; GLUCOSE 108 mg/dL (70-104); POTASSIUM 3.9 mmol/L (3.5-5.1); SODIUM 137 mmol/L (136-145); TCO2 26 mmol/L (25-35)
[2018-12-13 06:49] LABS: BASO# 0.05 X1000 (0.0-0.2); BASO% 0.4 % (0.0-0.8); EOS# 0.15 X1000 (0.0-0.7); EOS% 1.3 % (0.0-10.0); HEMATOCRIT 40.5 % (42.0-52.0); HEMOGLOBIN 12.9 g/dL (14.0-18.0); IMM GRAN% 1.8 % (0.0-0.5); LYMPH# 1.32 X1000 (1.2-3.4); LYMPH% 11.8 % (20.5-51.1); MCH 23.5 PG (27-31); MCHC 31.9 g/dL (33-37); MCV 73.9 FL (81-99); MONO# 1.36 X1000 (0.11-0.59); MONO% 12.2 % (1.7-9.3); MPV 11.1 FL (7.4-10.4); NEUT% 72.5 % (42.2-75.2); PLT 324 X1000 (130-400); RBC 5.48 XMIL (4.7-6.1); RDW 14.5 % (11.5-14.5); WBC 11.18 X1000 (4.8-10.8)
[2018-12-13 07:57] VITALS: BP 131/80
[2018-12-13 08:03] LABS: ANISOCYTOSIS 1+; EOS 3 % (1-10); LYMPHS 13 % (21-51); MICROCYTOSIS 1+; MONO 11 % (1-9); SEGS 73 % (42-75)
--- NOTE | 2018-12-13 11:05 | GENERAL SURGERY PROGRESS NOTE ---
DATE: 12/13/2018 SUBJECTIVE: The patient is feeling better. He denies pain when he walks, sits, or has bowel movements. He is having normal bowel movements at this time. He is eating without nausea or vomiting. No fever or chills. OBJECTIVE: He is afebrile. Vital signs are stable. General: He is awake, alert, and oriented x3. No acute distress. Gastrointestinal: Soft, nondistended. He is mildly tender in the suprapubic and left lower quadrant. This is much improved. No rebound or guarding. Laboratory: White blood cell count 11,000 without a left shift. Electrolytes reviewed and unremarkable. ASSESSMENT/PLAN: A 43-year-old male with contained perforation of the sigmoid colon due to diverticulitis. He is much improved. We will recommend discharge today with a 7 day course of ciprofloxacin and Flagyl at home, as well as a stool softener and fiber. He was encouraged to follow up with me in a week to ensure resolution of his symptoms and to plan for future colonoscopy. cc: Juno Bazan MD
--- NOTE | 2018-12-13 21:14 | DISCHARGE SUMMARY ---
ADMISSION DATE: 12/05/2018 DISCHARGE DATE: 12/13/2018 DIAGNOSES: 1. Hypokalemia. 2. Leukocytosis resolved. 3. Contained perforation of the sigmoid colon due to diverticulitis. CONSULTS: Dr. Juno Bazan, General Surgery. DIAGNOSTICS: 1. 12/05/2018 CT of the abdomen and pelvis with IV contrast revealed acute diverticulitis of the sigmoid colon. No complication. Small left adrenal gland nodule of doubtful significance. 2. Chest x-ray revealed negative exam. 3. 12/09/2018 CT of the abdomen and pelvis revealed worsening sigmoid diverticulitis. 4. Microbiology. Blood cultures x2 revealed no growth after 5 days. 5. Urine culture revealed no growth. HOSPITAL COURSE: Mr. Wallis presented to the emergency room complaining of left lower quadrant abdominal pain. He was found to have diverticulitis on CT scan. He was initially made NPO and placed on Rocephin and Flagyl. As his pain increased surgery was consulted. Conservative management was followed with continuation of antibiotics. His diet has been advanced to a GI soft and he tolerated meals without any abdominal pain, nausea, vomiting. He did remain afebrile and thankfully he is ready for discharge today. DISCHARGE PHYSICAL EXAM: Blood pressure is 131/80 with heart rate of 66, respirations 18, temperature 98.1 degrees oral with room air saturations 98-100%. Cardiovascular: Regular rate and rhythm. S1, S2 appreciated. He has no lower extremity edema. Calves are nontender. Pulmonary: Breath sounds are clear. No increased work of breathing noted. Gastrointestinal: Abdomen soft, nondistended, he does have some suprapubic and left lower quadrant mild tenderness which is much improved. DISCHARGE MEDICATIONS: 1. Cipro 500 mg p.o. b.i.d. for 7 days. 2. Flagyl 500 mg p.o. t.i.d. for 7 days. 3. Milk of magnesia 30 mL p.o. daily for 7 days . FOLLOWUP: Dr. Juno Bazan in 1 week. He was instructed by Dr. Bazan to call the office to schedule an appointment. He has been instructed to call to be seen sooner or return to the ER for temperature greater than 101, any constipation, diarrhea, any black or bloody vomitus or stools, increasing abdominal pain, any nausea, vomiting, any shortness of breath, chest pain, palpitations, or for any questions, concerns he may have. He is being discharged home in stable condition family members. TIME SPENT: This is a greater than 30 minute discharge. Dictated by JOSE Gilmore for Robi Christine MD cc: JOSE Gilmore MD [facility]
--- NOTE | 2018-12-14 07:02 | PROGRESS NOTE ---
DATE: 12/13/2018 White count 45714, hemoglobin and hematocrit 12 and 40, and platelets 324,000. On exam, pain is essentially resolved. He will be discharged today with diverticulitis on Cipro and Flagyl. Follow up with Dr. Bazan. He seems to be doing better so anticipate discharge today. This is a [id number] encounter note with JOSE Adair. His white count had normalized. I think we could have probably avoided drawing a CBC today, but we will see how things look. Clinically, he is much improved and stable for discharge. cc: Robi Christine MD
== END 2018-12-13 12:08 | disposition home or self-care (01) | DRG 392 ==
LOC: P.ED 10:03 → P.MEDSURG 16:13 → SUATTDRO 16:13 → P.MEDSURG 12-06 11:40
PROVIDERS: ATTEND Internal Medicine